=== PATIENT | male | born 1985 | race Two or more races ===

== ENCOUNTER 2019-04-28 14:48 | Emergency (ER) | payer OTHER ==
[~2019-04-28] VITALS: Ht 172.7 cm; Wt 118.0 kg
[2019-04-28] MEDS ORDERED: MORPHINE SULFATE 4 MG/ML CPJ (NOT FOR IM USE) IV STA (15:08)
[2019-04-28 15:40] LABS: BASOPHILS % 0.7 % (0.0-2.0); EOSINOPHILS % 1.5 % (0.0-5.0); HEMATOCRIT. 45.3 % (42.0-52.0); HEMOGLOBIN. 15.3 g/dL (14.0-18.0); LYMPHOCYTES % 26.3 % (20.0-50.0); MEAN CORPUSCULAR HEMOGLOBIN 28.5 pg (28.0-32.0); MEAN CORPUSCULAR VOLUME 84.4 fL (80.0-94.0); MEAN PLATELET VOLUME 6.7 fl (7.4-10.4); MONOCYTES % 7.7 % (2.0-8.0); NEUTROPHILS % 63.8 % (40.0-76.0); PLATELET 280 x1000/uL (130-400); RED BLOOD CELL COUNT 5.36 mill/uL (4.7-6.1); RED CELL DISTRIBUTION WIDTH 14.1 % (11.6-14.6)
[2019-04-28 15:43] LABS: CHLORIDE 110 mEq/L (98-107)
[2019-04-28 15:45] LABS: PROTHROMBIN TIME 10.3 sec (9.6-11.0)
[2019-04-28] MEDS ORDERED: KETOROLAC 30MG/ML VIAL IV ONE (16:00)
[2019-04-28 17:44] VITALS: BP 154/89
== END 2019-04-28 18:01 | disposition home or self-care (01) ==
LOC: ER 14:48
DX: R10.32 Left lower quadrant pain (principal); M54.89 Other dorsalgia
CPT/HCPCS: 36415; 74176; 80053; 83690; 85025; 85610; 96374; 96375; 99284; J1885; J2270